=== PATIENT | male | born 1950 | race Caucasian/White ===

== ENCOUNTER 2016-12-03 22:21 | Emergency (ER) | payer MEDICARE, OTHER ==
[~2016-12-03] VITALS: Ht 175.3 cm; Wt 82.4 kg
[~2016-12-03 22:21] MED LIST: ADVAIR 250-501 EACH INH; ALBUTEROL SULF8.5 GM INH; AMLODIPINE BESY10 MG PO; AMLODIPINE BESYL5 MG PO; ASPIR-LOW81 MG PO; ATENOLOL25 MG PO; CARVEDILOL25 MG PO; CLOPIDOGREL75 MG PO; COMBIVENT RESPIM4 GM INH; DILTIAZEM 24HR240 MG PO; ENDOCET 5-3251 EACH PO; ENDOCET 7.5-321 EACH PO; FUROSEMIDE20 MG PO; FUROSEMIDE40 MG PO; IPRAT-ALBUT 0.5-3 ML INH; ISOSORBIDE MONO30 MG PO; LASIX40 MG PO; LEVAQUIN500 MG PO; LEVAQUIN750 MG PO; LISINOPRIL-HCT1 EAC1 PO; LOSARTAN POTASS50 MG PO; METOPROLOL SUCC25 MG PO; METOPROLOL TART25 MG PO; MONTELUKAST SOD10 MG PO; NICORETTE4 M1 BUCCAL; NICOTINE LOZENGE2 MG MM; NICOTINE PATCH1 EACH TD; NITROSTAT0.4 MG SL; NORCO 5-325 TA1 EACH PO; OXYCODONE-ACET1 EAC1 PO; OXYCODONE-ACET1 EAC3 PO; PERCOCET 5-3251 EACH PO; PRAVASTATIN SOD10 MG PO; PREDNISONE20 MG PO; PROAIR HFA8.5 GM INH; RANITIDINE HCL150 MG PO; TRAZODONE HCL100 MG PO
[2016-12-03] MEDS ORDERED: FUROSEMIDE40 MG PO (22:33)
--- OUTSIDE RECORDS SUMMARY | 2016-12-04 00:31 | XMS ---
Demographics + + + | Address | [address] | | | [address] | | | [place] [address] | + + + | Preferred Language | Unknown | + + + | Marital Status | Unknown | + + + | Jehovah'S Witness Affiliation | Unknown | + + + | Race | Unknown | + + + | Ethnic Group | Unknown | + + + Author + + + | Author | [facility] | + + + | Organization | [facility] | + + + | Address | [address] | | | [place] [address] | + + + | Phone | | + + + Care Team Providers + + + + | Care Engineering Design Supervisor Name | Role | Phone | + + + + Unavailable | Unavailable | + + + + PROBLEMS +---------+ + + +--------+ + + | Type | Condition | ICD9-CM | [id number] | Onset | Condition | SNOMED | | | | Code | Code | Dates | Status | Code | +---------+ + + +--------+ + + | Problem | Hyperlipem | | E78.5 | | Active | [id number] | | | ia | | | | | | +---------+ + + +--------+ + + | 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 | [id number] | | | erotic | | | | | | | | cardiovasc | | | | | | | | ular | | | | | | | | disease | | | | | | +---------+ + + +--------+ + + | Problem | Hyperlipid | | E78.5 | | Active | [id number] | | | emia | | | | | | +---------+ + + +--------+ + + | Problem | Essential | | I10 | | Active | [id number] | | | (primary) | | | | | | | | hypertensi | | | | | | | | on | | | | | | +---------+ + + +--------+ + + ALLERGIES + + + + +--------+ | Substance | Reaction | Event Type | Date | Status | + + + + +--------+ | Talwin | halucinations | Drug Allergy | Oct, | Active | + + + + +--------+ SOCIAL HISTORY No smoking Hx information available PLAN OF CARE + +---------+ | Activity | Details | + +---------+ +---+ | | +---+ + + + | Follow Up | dec 08 Reason:null | + + + | Pending Test | Comp. Metabolic Panel (14) | + + + VITAL SIGNS + + + + | Height | 69 in | 2016-10-27 | + + + + | Weight | 175.8 lbs | 2016-10-27 | + + + + | BMI | 25.96 kg/m2 | 2016-10-27 | + + + + | Temperature | 98.1 degrees Fahrenheit | 2016-10-27 | + + + + | Heart Rate | 85 /min | 2016-10-27 | + + + + | Blood pressure systolic | 93 mm Hg | 2016-10-27 | + + + + | Blood pressure diastolic | 69 mm Hg | 2016-10-27 | + + + + MEDICATIONS + + + + + + + +--------+ | Medicati | Instruct | Dosage | Frequenc | Start | End Date | Duration | Status | | on | ions | | y | Date | | | | + + + + + + + +--------+ | Trazodon | Orally | 2 tablet | 24h | | | 30 | Active | | e 100 MG | Once a | at | | | | | | | | day | bedtime | | | | | | + + + + + + + +--------+ | Albutero | Inhalati | 2 puffs | | Mar, | | 30 days | Active | | l | on every | | | 2010 | | | | | Sulfate | 4 hrs | | | | | | | | HFA 108 | as | | | | | | | | (90 | needed | | | | | | | | Base) | for | | | | | | | | MCG/ACT | wheezing | | | | | | | + + + + + + + +--------+ | Aspirin | Orally | 1 tablet | 24h | | | | Active | | 81 MG | Once a | | | | | | | | | day | | | | | | | + + + + + + + +--------+ | Oxygen | Nasal | O2 @ 2L | | Apr, | 26 Jul, | 99 | Active | | Misc | Cannula | | | 2016 | 2024 | months | | | | Continuo | | | | | | | | | us | | | | | | | + + + + + + + +--------+ | [place] | Orally | 1 tablet | 24h | | | | Active | | ast | Once a | in the | | | | | | | Sodium | day | evening | | | | | | | 10 MG | | | | | | | | + + + + + + + +--------+ | Metoprol | Orally | 1 tablet | 12h | | | | Active | | ol | Twice a | with | | | | | | | Tartrate | day | food | | | | | | | 25 MG | | | | | | | | + + + + + + + +--------+ | Pravacho | po q day | TAKE ONE | | | | 90 | Active | | l 10MG | | TABLET | | | | | | | | | BY MOUTH | | | | | | | | | AT | | | | | | | | | BEDTIME | | | | | | + + + + + + + +--------+ | Percocet | Orally | 1tablet | | 30 Oct, | | 30 | Active | | 5-325 | every 12 | as | | 2015 | | | | | MG | hr prn | needed | | | | | | + + + + + + + +--------+ | Nitrogly | | | | | | | Active | | cerin | | | | | | | | | 0.4 MG | | | | | | | | + + + + + + + +--------+ | Lisinopr | Orally | 1 tablet | 24h | | | | Active | | [place] | Once a | | | | | | | | chloroth | day | | | | | | | | iazide | | | | | | | | | 20-25 MG | | | | | | | | + + + + + + + +--------+ | DuoNeb | Inhalati | 3 ml | 6h | | | | Active | | 0.5-2.5 | on Four | | | | | | | | (3) | times a | | | | | | | | MG/3ML | day | | | | | | | + + + + + + + +--------+ | Furosemi | Orally | 1 tablet | 24h | | | 30 | Active | | de 40MG | Once a | | | | | | | | | day | | | | | | | + + + + + + + +--------+ | Losartan | Orally | 1 tablet | 24h | | | | Active | | | Once a | | | | | | | | Potassiu | day | | | | | | | | m 50 MG | | | | | | | | + + + + + + + +--------+ RESULTS No Results PROCEDURES + + + + + | Procedure | Date Ordered | Related Diagnosis | Body Site | + + + + + | Office Visit, Est | October 27, 2016 | | | | Pt., Level 3 | | | | + + + + + IMMUNIZATIONS No Known Immunizations"
--- OUTSIDE RECORDS SUMMARY | 2016-12-04 00:31 | XMS ---
Demographics + + + | Address | [address] | | | [address] | | | [place] [address] | + + + | Preferred Language | Unknown | + + + | Marital Status | Unknown | + + + | Adventism Affiliation | Unknown | + + + | Race | Unknown | + + + | Ethnic Group | Unknown | + + + Author + + + | Author | [facility] | + + + | Organization | [facility] | + + + | Address | [address] | | | [place] [address] | + + + | Phone | | + + + Care Team Providers + + + + | Care Mine Boss Name | Role | Phone | + + + + Unavailable | Unavailable | + + + + PROBLEMS +---------+ + + +--------+ + + | Type | Condition | ICD9-CM | [id number] | Onset | Condition | SNOMED | | | | Code | Code | Dates | Status | Code | +---------+ + + +--------+ + + | Problem | Hyperlipem | | E78.5 | | Active | [id number] | | | ia | | | | | | +---------+ + + +--------+ + + | 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 | [id number] | | | erotic | | | | | | | | cardiovasc | | | | | | | | ular | | | | | | | | disease | | | | | | +---------+ + + +--------+ + + | Problem | Hyperlipid | | E78.5 | | Active | [id number] | | | emia | | | | | | +---------+ + + +--------+ + + | Problem | Essential | | I10 | | Active | [id number] | | | (primary) | | | [...] Talwin | halucinations | Drug Allergy | Sep, | Active | + + + + +--------+ SOCIAL HISTORY No smoking Hx information available PLAN OF CARE + +---------+ | Activity | Details | + +---------+ +---+ | | +---+ + + + | Follow Up | 2 Weeks Reason:null | + + + | Pending Test | Comp. Metabolic Panel (14) | + + + VITAL SIGNS + + + + | Height | 69 in | 2016-10-13 | + + + + | Weight | 176.6 lbs | 2016-10-13 | + + + + | BMI | 26.08 kg/m2 | 2016-10-13 | + + + + | Temperature | 98.3 degrees Fahrenheit | 2016-10-13 | + + + + | Heart Rate | 76 /min | 2016-10-13 | + + + + | Blood pressure systolic | 106 mm Hg | 2016-10-13 | + + + + | Blood pressure diastolic | 55 mm Hg | 2016-10-13 | + + + + MEDICATIONS + [...] | | | | Active | | [place] | Once a | | | | [...] | Inhalati | 2 puffs | | 09 Mar, | | 30 days | Active [...] + | Office Visit, Est | October 13, 2016 | | | | Pt., Level 3 | | | | + + + + + IMMUNIZATIONS No Known Immunizations"
--- OUTSIDE RECORDS SUMMARY | 2016-12-04 00:31 | XMS ---
Demographics + + + | Address | [address] | | | [address] | | | [place] [address] | + + + | Preferred Language | Unknown | + + + | Marital Status | Unknown | + + + | Nondenominational Affiliation | Unknown | + + + | Race | Unknown | + + + | Ethnic Group | Unknown | + + + Author + + + | Author | [facility] | + + + | Organization | [facility] | + + + | Address | [address] | | | [place] [address] | + + + | Phone | | + + + Care Team Providers + + + + | Care Visitor Services Representative Name | Role | Phone | + + + + Unavailable | Unavailable | + + + + PROBLEMS +---------+ + + +--------+ + + | Type | Condition | ICD9-CM | [id number] | Onset | Condition | SNOMED | | | | Code | Code | Dates | Status | Code | +---------+ + + +--------+ + + | Problem | Hyperlipem | | E78.5 | | Active | [id number] | | | ia | | | | | | +---------+ + + +--------+ + + | 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 | [id number] | | | erotic | | | | | | | | cardiovasc | | | | | | | | ular | | | | | | | | disease | | | | | | +---------+ + + +--------+ + + | Problem | Hyperlipid | | E78.5 | | Active | [id number] | | | emia | | | | | | +---------+ + + +--------+ + + | Problem | Essential | | I10 | | Active | [id number] | | | (primary) | | | | | | | | hypertensi | | | | | | | | on | | | | | | +---------+ + + +--------+ + + ALLERGIES Unknown Allergies SOCIAL HISTORY No smoking Hx information available PLAN OF CARE VITAL SIGNS MEDICATIONS Unknown Medications RESULTS No Results PROCEDURES No Known procedures IMMUNIZATIONS No Known Immunizations"
== END 2016-12-04 01:50 | disposition short-term general hospital (02) ==
LOC: ED 22:21
DX: K92.2 Gastrointestinal hemorrhage, unspecified (principal); I12.9 Hypertensive chronic kidney disease with stage 1 through stage 4 chronic kidney disease, or unspecified chronic kidney disease; N18.9 Chronic kidney disease, unspecified; E87.5 Hyperkalemia; J44.9 Chronic obstructive pulmonary disease, unspecified; F17.200 Nicotine dependence, unspecified, uncomplicated; Z88.8 Allergy status to other drugs, medicaments and biological substances; Z79.899 Other long term (current) drug therapy; Z79.82 Long term (current) use of aspirin
CPT/HCPCS: 71010; 80053; 85025; 85610; 85730; 86850; 86900; 86901; 86920; 86922; 96374; 96375; 99291; J0610; J2060; J3010; J7030